=== PATIENT | male | born 1955 | race Caucasian/White ===

== ENCOUNTER 2020-11-09 13:00 | Outpatient (CLI) | payer MEDICARE, SELFPAY ==
--- NOTE | ~2020-11-09 | XR_ITS ---
XR chest 2V 11/09/2020 13:32 Indication: Acute bronchitis, cough, low-grade fever and wheezing Procedure: 2 view chest Comparison: No prior studies for comparison. Findings: Heart size normal. No focal air space disease, pulmonary edema, pleural effusion or suspect ed pneumothorax. No acute osseous abnormality. Prominent left cardiophrenic angle fat pad. There is thoracic kyphosis with syndesmophytes at each level. No acute osseous abnormality. Impression: 1: No acute cardiopulmonary disease. Reviewed, dictated and finalized at location [facility] Impression: 1: No acute cardiopulmonary disease.
== END 2020-11-09 13:01 | disposition home or self-care (01) ==
PROVIDERS: PCP Internal Medicine; Visit Provider Internal Medicine
DX: J20.0 Acute bronchitis due to Mycoplasma pneumoniae (principal); J20.1 Acute bronchitis due to Hemophilus influenzae; J20.2 Acute bronchitis due to streptococcus; J20.3 Acute bronchitis due to coxsackievirus; J20.4 Acute bronchitis due to parainfluenza virus; J20.5 Acute bronchitis due to respiratory syncytial virus; J20.6 Acute bronchitis due to rhinovirus; J20.7 Acute bronchitis due to echovirus; J20.8 Acute bronchitis due to other specified organisms
CPT/HCPCS: 71046

== ENCOUNTER 2023-01-29 10:35 | Outpatient (CLI) | payer MEDICARE, SELFPAY ==
--- NOTE | ~2023-01-29 | US_ITS ---
Renal-Bladder ultrasound Clinical History: Chronic renal failure Technique: Real-time sonographic imaging of the kidneys and urinary bladder was performed. Findings: The right kidney measures 11.1 cm in length and the left kidney measures 12.0 cm. There is no hydronephrosis or renal calculus identified. Renal cortical echogenicity is within normal limits. No renal mass lesion is identified. The urinary bladder is moderately distended at the time of this exam. No intraluminal echoes are iden tified. No abnormal wall thickening is seen. Impression: Unremarkable ultrasound of the kidneys and urinary bladder. Reviewed, dictated and finalized at location . Impression: Unremarkable ultrasound of the kidneys and urinary bladder.
== END 2023-01-29 10:36 | disposition home or self-care (01) ==
LOC: ANHIMG 10:38
PROVIDERS: PCP Internal Medicine; Visit Provider Internal Medicine
DX: N18.9 Chronic kidney disease, unspecified (principal)
CPT/HCPCS: 76775

== ENCOUNTER 2024-01-19 01:40 | Day surgery (SDC) | payer MEDICARE, SELFPAY ==
[2024-01-12 09:20] VITALS: BMI 31.6
[2024-01-19 13:15] VITALS: BP 103/77; PULSE 78; RESP 18; TEMP 36.2; O2SAT 100
[2024-01-19 13:27] LABS: Glucose Point of Care 83 mg/dl (65-105)
[2024-01-19] MEDS: LACTATED RINGERS 1,000 ML 150 ML IV CONT (13:27)
--- NOTE | 2024-01-19 13:36 | WPDANESEPPF ---
Anes - Initial Pre Proc Eval Procedure: Operation Date: 01/19/24 14:00 Proposed Procedures p Colonoscopy - Don Stoner MD Date/Time: 01/19/24 13:36 Surgeon: Don Stoner MD Pre Op Diagnosis: hx colon polyps Patient Data Age: 68 Gender: M Height: 1.78 m Weight: 95.2 kg Last Vital Signs Temp 97.2 F L 01/19/24 13:15 Pulse 78 01/19/24 13:15 Resp 18 01/19/24 13:15 BP 103/77 01/19/24 13:15 Pulse Ox 100 01/19/24 13:15 O2 Del Method Room Air 01/19/24 13:15 Allergies Allergy/AdvReac Type Severity Reaction Status Date / Time No Known Allergies Allergy Unverified 01/19/24 13:14 Home Medications Medication Instructions Recorded Confirmed Type apple cider vinegar 300 mg tablet 300 mg PO DAILY 01/12/24 01/12/24 History aspirin 81 mg chewable tablet 81 mg PO DAILY 01/12/24 01/12/24 History cholecalciferol (vitamin D3) 10 10 mcg PO DAILY 01/12/24 01/12/24 History mcg (400 unit) capsule (Vitamin D3) finasteride 5 mg tablet 5 mg PO DAILY 01/12/24 01/12/24 History glimepiride 2 mg tablet 2 mg PO DAILY 01/12/24 01/12/24 History lisinopril 20 1 tablet PO DAILY 01/12/24 01/12/24 History mg-hydrochlorothiazide 12.5 mg tablet metformin 1,000 mg tablet 1,000 mg PO BID 01/12/24 01/12/24 History rosuvastatin 20 mg tablet 20 mg PO DAILY 01/12/24 01/12/24 History Laboratory Tests 01/19/24 13:20 POC Capillary Glucose 83 mg/dl (65-105) Patient hx anesthesia problems: none Family hx anesthesia problems: none Results Review: All pre-operative results and documents have been reviewed as part of the pre-operative evaluation. PENDING SALE TO [facility] Social History Social History Smoking status: Never smoker Alcohol intake: current Substance use: never Living arrangements: with family Spiritual care concerns: No Anes - Eval Final PreProcedure Day of Procedure 01/19/24 13:36 Patient weight: obese Heart: regular rate and rhythm Lungs: clear to auscultation Airway: Mallampati scale class II Neurological: alert and oriented Last oral intake: >/= 8 hours ASA classification: III Emergent: no Anesthetic plan: proceed Anesthesia type and monitoring: general GIVS and standard monitoring Results Review: All pre-operative results and documents have been reviewed as part of the pre-operative evaluation. Informed Consent: The patient's anesthetic plan and its attendant risks and benefits were discussed with the patient/family/POA. Questions were solicited and answers provided to the satisfaction of the patient/family/POA.
--- NOTE | 2024-01-19 14:15 | PM.HPGS ---
History of Present Illness History of Present Illness Consent: Risks, benefits, and alternatives have been discussed and questions answered. Patient agrees to proceed with procedure. Chief complaint: hx colon polyps Narrative: Delvin Langley is a 68 year old male with colon polyp 5 years ago Review of Systems Review of Systems: All systems reviewed & are unremarkable except as noted in HPI and below PMFSH Past Medical History Medical History (Updated 01/19/24 @ 14:15 by Don Stoner MD) Colon polyp Social History Social History Smoking status: Never smoker Alcohol intake: current Substance use: never Living arrangements: with family Spiritual care concerns: No Meds Home Medications and Allergies Home Medications Medication Instructions Recorded Confirmed Type apple cider vinegar 300 mg tablet 300 mg PO DAILY 01/12/24 01/12/24 History aspirin 81 mg chewable tablet 81 mg PO DAILY 01/12/24 01/12/24 History cholecalciferol (vitamin D3) 10 10 mcg PO DAILY 01/12/24 01/12/24 History mcg (400 unit) capsule (Vitamin D3) finasteride 5 mg tablet 5 mg PO DAILY 01/12/24 01/12/24 History glimepiride 2 mg tablet 2 mg PO DAILY 01/12/24 01/12/24 History lisinopril 20 1 tablet PO DAILY 01/12/24 01/12/24 History mg-hydrochlorothiazide 12.5 mg tablet metformin 1,000 mg tablet 1,000 mg PO BID 01/12/24 01/12/24 History rosuvastatin 20 mg tablet 20 mg PO DAILY 01/12/24 01/12/24 History Allergies Allergy/AdvReac Type Severity Reaction Status Date / Time No Known Allergies Allergy Unverified 01/19/24 13:14 Vital Signs Vital Signs - 24 hr 01/19/24 13:15 Temperature 97.2 F L Pulse Rate 78 Respiratory Rate 18 Blood Pressure 103/77 Pulse Oximetry 100 Oxygen Delivery Room Air Exam Const: General: comfortable and no acute distress HENMT: Face/Nose/Sinus: Normal nares present Eyes: General: appearance normal, both eyes and all related structures Neck: Neck: no JVD Resp: Auscultation: clear to auscultation bilaterally Cardio: Rate: regular rate Rhythm: regular rhythm GI: Inspection: non-distended GI Palp: Yes Soft to palpation Skin: General skin exam: normal color Neuro: General: gait normal Speech: normal speech Extrem: General: normal to inspection Psych: Mental Status: mental status grossly normal Assessment and Plan Assessment and plan (1) Colon polyp: Code(s): K63.5 - Polyp of colon Status: Acute Assessment and Plan: colonoscopy
[2024-01-19 14:31] VITALS: BP 105/64; PULSE 84; RESP 18; O2SAT 97
[2024-01-19 14:41] VITALS: BP 114/72; PULSE 85; RESP 17; O2SAT 99
[2024-01-19 14:51] VITALS: BP 117/71; PULSE 71; RESP 19; O2SAT 99
== END 2024-01-19 15:00 | disposition home or self-care (01) ==
PROVIDERS: PCP Internal Medicine; Visit Provider Internal Medicine Gastroenterology
PROC: 0DJD8ZZ Inspection of Lower Intestinal Tract, Via Natural or Artificial Opening Endoscopic (ICD-10-PCS; CPT 45378; principal; 2024-01-19 14:00)
DX: Z12.11 Encounter for screening for malignant neoplasm of colon (principal); K57.30 Diverticulosis of large intestine without perforation or abscess without bleeding; K64.8 Other hemorrhoids; Z86.010 Personal history of colon polyps; Z79.82 Long term (current) use of aspirin; Z79.84 Long term (current) use of oral hypoglycemic drugs; E66.9 Obesity, unspecified; Z68.30 Body mass index [BMI] 30.0-30.9, adult
CPT/HCPCS: G0105; 82948; J2704; J7120